=== PATIENT | female | born 1995 | race Caucasian/White ===

== ENCOUNTER 2018-08-20 19:16 | Emergency (ER) | payer SELFPAY ==
[~2018-08-20] VITALS: Ht 165.1 cm; Wt 68.0 kg
[2018-08-20 20:21] VITALS: BP 140/98
== END 2018-08-20 23:42 | disposition left against medical advice (07) ==
LOC: ER 19:16
DX: M54.5 Low back pain (principal); R51 Headache; Z53.21 Procedure and treatment not carried out due to patient leaving prior to being seen by health care provider